=== PATIENT | male | born 1985 | race African-American/Black ===

== ENCOUNTER 2017-05-01 08:41 | Emergency (ER) | payer OTHER, SELFPAY ==
[2017-05-01] MEDS ORDERED: Ibuprofen 800 MG TAB ONE (09:16)
[2017-05-01] MEDS ORDERED: Morphine Sulfate 2 MG/ML SYRINGE ONE (09:17)
--- NOTE | 2017-05-01 11:30 | CT ---
CT OF THE THORACIC SPINE AND CT OF THE LUMBAR SPINE WITHOUT CONTRAST: Date: 05/01/17 HISTORY: Fall from ladder with back pain. TECHNIQUE: 1. Multiple contiguous axial images were obtained in a CT of the thoracic spine without contrast. S agittal and coronal reformats were performed. 2. Multiple contiguous axial images were obtained in a CT of the lumbar spine without contrast. Sag ittal and coronal reformats were performed. FINDINGS: CT THORACIC SPINE: The vertebral bodies and intervertebral discs demonstrate normal height and alignment without fractu re or subluxation. No degenerative changes are seen. The prevertebral soft tissues are unremarkable. CT LUMBAR SPINE: The vertebral bodies and intervertebral discs demonstrate normal height and alignment without fractu re or subluxation. No degenerative changes are seen. The prevertebral soft tissues are unremarkable. IMPRESSION: 1. No evidence of acute osseous abnormality of the thoracic spine. 2. No evidence of acute osseous abnormality of the lumbosacral spine. POS: [facility]
--- NOTE | 2017-05-01 11:31 | RAD ---
2 VIEW CHEST: Date: 05/01/17 Reference made to 04/21/12. CLINICAL HISTORY: Fall with chest injury, pain. FINDINGS: There is no consolidation, effusion, or pneumothorax. The cardiac silhouette is within normal limits of size. No shift of mediastinal structures from midline. IMPRESSION: No focal consolidation. POS: [facility]
== END 2017-05-01 10:31 | disposition home or self-care (01) ==
LOC: NAV ERS 08:41
DX: S39.012A Strain of muscle, fascia and tendon of lower back, initial encounter (principal); S29.012A Strain of muscle and tendon of back wall of thorax, initial encounter; W11.XXXA Fall on and from ladder, initial encounter
CPT/HCPCS: 71020; 72128; 72131; 96372; J2270

== ENCOUNTER 2017-11-21 15:35 | Emergency (ER) | payer OTHER ==
[2017-11-21] MEDS ORDERED: Acetaminophen 500 MG TAB ONE (16:17)
[2017-11-21] MEDS ORDERED: Ibuprofen 800 MG TAB ONE (16:17)
== END 2017-11-21 16:32 | disposition home or self-care (01) ==
LOC: NAV ERS 15:35
DX: J11.1 Influenza due to unidentified influenza virus with other respiratory manifestations (principal); F17.210 Nicotine dependence, cigarettes, uncomplicated
CPT/HCPCS: 99283

== ENCOUNTER 2018-02-27 08:47 | Emergency (ER) | payer OTHER, SELFPAY ==
[2018-02-27] MEDS ORDERED: Ondansetron ODT 4 MG TAB ONE (09:55)
[2018-02-27 10:40] LABS: #Basophils 0.1 thou/uL (0.0-0.2); #Eosinphils 0.1 thou/uL (0.0-0.7); #Monocytes 0.4 thou/uL (0.11-0.59); #Neutrophils 5.2 thou/uL (1.40-6.50); %Basophils 0.9 % (0.0-1.0); %Eosinophils 1.7 % (0.0-10.0); %Lymphocytes 14.9 % (21.0-51.0); %Monocytes 5.3 % (0.0-10.0); %Neutrophils 77.1 % (42.0-75.0); Hemoglobin 13.4 g/dL (14.0-18.0); Mean Corpuscular HGB CONC 32.6 g/dL (32.0-36.0); Mean Corpuscular Hemoglobin 29.9 pg (27.0-31.0); Mean Corpuscular Volume 91.7 fl (80.0-94.0); Mean Platelet Volume 7.4 fL (7.4-10.4); Platelet Count 202 thou/uL (130-400); RBC Distribution Width 11.6 % (11.5-14.5); White Blood Cell (WBC) Count 6.7 thou/uL (4.8-10.8)
[2018-02-27 10:49] LABS: Anion Gap 14 mmol/L (10-20); BUN (Urea Nitrogen) 19 mg/dL (8.9-20.6); Calc. Creatinine Clearance 0 mL/min (70-130); Calcium 9.2 mg/dL (7.8-10.44); Carbon Dioxide 25 mmol/L (22-29); Chloride 106 mmol/L (98-107); Estimated GFR-MDRD 87; Glucose 95 mg/dL (70-105); Potassium 4.1 mmol/L (3.5-5.1); Sodium 141 mmol/L (136-145)
[2018-02-27 10:53] LABS: CKMB 3.3 ng/mL (0-6.6); Troponin I Less than 0.010 ng/mL (< 0.028)
--- NOTE | 2018-02-27 11:45 | RAD ---
CHEST 1 VIEW AND ABDOMEN 2 VIEWS: Date: 02/27/18 HISTORY: 32-year-old male with history of abdominal pain and emesis. Nausea and diarrhea. FINDINGS: No significant acute intrathoracic disease. In the abdomen, there is scattered gas and fecal material in the colon. There is some gas in several small bowel loops in the mid abdomen, which are not signi ficantly dilated. No overt calculus. No free intraperitoneal air. IMPRESSION: There is some minimal gas in nondilated small bowel in the mid abdomen, nonspecific. Depending on con cern, follow-up additional imaging might be of benefit. No free intraperitoneal air. No acute process in the chest. POS: [facility]
== END 2018-02-27 11:14 | disposition home or self-care (01) ==
LOC: NAV ERS 08:47
DX: R11.2 Nausea with vomiting, unspecified (principal); R19.7 Diarrhea, unspecified; F17.210 Nicotine dependence, cigarettes, uncomplicated
CPT/HCPCS: 36415; 74022; 80048; 82553; 84484; 85025; 93005; 96372; Q0162

== ENCOUNTER 2019-11-05 06:58 | Emergency (ER) | payer SELFPAY ==
[2019-11-05 07:43] LABS: #Basophils 0.1 thou/uL (0.0-0.2); #Eosinphils 0.3 thou/uL (0.0-0.7); #Monocytes 0.4 thou/uL (0.11-0.59); #Neutrophils 3.1 thou/uL (1.40-6.50); %Basophils 1.1 % (0.0-1.0); %Eosinophils 4.9 % (0.0-10.0); %Lymphocytes 33.6 % (21.0-51.0); %Monocytes 7.6 % (0.0-10.0); %Neutrophils 52.8 % (42.0-75.0); Hemoglobin 14.6 g/dL (14.0-18.0); Mean Corpuscular HGB CONC 33.2 g/dL (32.0-36.0); Mean Corpuscular Hemoglobin 30.8 pg (27.0-31.0); Mean Corpuscular Volume 92.8 fL (78.0-98.0); Mean Platelet Volume 7.5 fL (7.4-10.4); Platelet Count 241 thou/uL (130-400); Red Blood Cell (RBC) Count 4.73 mill/uL (4.70-6.10); White Blood Cell (WBC) Count 5.8 thou/uL (4.8-10.8)
[2019-11-05 07:59] LABS: ALT (SGPT) 25 U/L (8-55); AST (SGOT) 21 U/L (5-34); Albumin 4.7 g/dL (3.5-5.0); Alkaline Phosphatase 42 U/L (40-110); Anion Gap 14 mmol/L (10-20); BUN (Urea Nitrogen) 19 mg/dL (8.9-20.6); Bilirubin, Total 0.3 mg/dL (0.2-1.2); CK (CPK) 291 U/L (30-200); Calc. Creatinine Clearance 0 mL/min (70-130); Calcium 9.5 mg/dL (7.8-10.44); Carbon Dioxide 26 mmol/L (22-29); Chloride 105 mmol/L (98-107); Estimated GFR-MDRD 83; Globulin 2.4 g/dL (2.4-3.5); Glucose 104 mg/dL (70-105); Potassium 4.3 mmol/L (3.5-5.1); Protein, Total 7.1 g/dL (6.0-8.3); Sodium 141 mmol/L (136-145)
== END 2019-11-05 08:13 | disposition home or self-care (01) ==
LOC: NAV ERS 06:58
DX: M79.10 Myalgia, unspecified site (principal); F17.210 Nicotine dependence, cigarettes, uncomplicated; Z71.6 Tobacco abuse counseling
CPT/HCPCS: 80053; 82550; 84484; 85025; 87804; 93005; 96374; 99406

== ENCOUNTER 2020-01-22 12:26 | Emergency (ER) | payer SELFPAY | END 2020-01-22 12:55 | disposition home or self-care (01) | LOC: NAV ERS 12:26 | DX: R11.2 Nausea with vomiting, unspecified (principal); F17.210 Nicotine dependence, cigarettes, uncomplicated | CPT/HCPCS: 99283 ==